=== PATIENT | male | born 1995 ===

== ENCOUNTER 2018-08-11 18:12 | Emergency (ER) | payer BC ==
[2018-08-11 20:04] VITALS: BP 128/71
[2018-08-11] MEDS: Albuterol HFA INHALER* 8 gm MDI INH ONE (21:05)
[2018-08-11] MEDS: Azithromycin TAB* 250 MG PO ONE (21:06)
[2018-08-11] MEDS: predniSONE TAB* 20 MG PO ONE (21:07)
--- NOTE | 2018-08-11 21:09 | ED ---
Influenza-Like Illness - HPI Summary HPI Summary: pt presents with a 1 week history of cough, subjective fevers, ear ache, headache. 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 he is a smoker. he has been smoking less due to his cough. - History of Current Complaint Chief Complaint: UCRespiratory Hx Obtained From: Patient Severity: Mild Associated Signs & Symptoms: Fever - subjective, Cough, Sore Throat, Headache Related Hx: Smoking - Allergy/Home Medications Allergies/Adverse Reactions: Allergies Allergy/AdvReac Type Severity Reaction Status Date / Time No Known Allergies Allergy Verified 08/11/18 20:00 Home Medications: Home Medications Esomeprazole Magnesium [Nexium 24Hr] 40 mg PO DAILY 08/11/18 [History Confirmed 08/11/18] Ibuprofen/Pseudoephedrine HCl [Advil Cold & Sinus] 1 tab PO Q6H PRN 08/11/18 [ History Confirmed 08/11/18] PMH/Surg Hx/FS Hx/Imm Hx Previously Healthy: Yes Respiratory History: Denies: Hx Asthma - Surgical History Surgery Procedure, Year, and Place: ACL reconstruction Infectious Disease History: No Infectious Disease History: Denies: Traveled Outside the [place] in Last 30 Days - Family History Known Family History: Positive: Hypertension - Social History Alcohol Use: Weekly Substance Use Type: Reports: None Smoking Status (MU): Light Every Day Tobacco Smoker Type: Cigarettes Amount Used/How Often: 2 pack weekly Review of Systems Positive: Fever - subjective, Fatigue. Negative: Chills Eyes: Negative ENT: Negative Positive: Sore Throat Cardiovascular: Negative Positive: Cough, Other - wheezing. Negative: Shortness Of Breath Gastrointestinal: Negative Genitourinary: Negative Positive: Myalgia. Negative: Arthralgia, Decreased ROM, Edema Skin: Negative Positive: Headache. Negative: Weakness, Paresthesia, Numbness, Syncope, Slurred Speech Psychological: Normal All Other Systems Reviewed And Are Negative: No Physical Exam Triage Information Reviewed: Yes Vital Signs On Initial Exam: Initial Vitals Temp Pulse Resp BP Pulse Ox 98.9 F 80 18 128/71 99 08/11/18 19:59 08/11/18 19:59 08/11/18 19:59 08/11/18 19:59 08/11/18 19:59 Vital Signs Reviewed: Yes Appearance: Positive: Well-Appearing, No Pain Distress, Well-Nourished Skin: Positive: Warm, Dry Head/Face: Positive: Normal Head/Face Inspection Eyes: Positive: Normal, EOMI, JAYME ENT: Positive: Normal ENT inspection, Hearing grossly normal, Pharynx normal Neck: Positive: Supple, Nontender Respiratory/Lung Sounds: Positive: Clear to Auscultation, Breath Sounds Present Cardiovascular: Positive: Normal, RRR Abdomen Description: Positive: Nontender, Soft Bowel Sounds: Positive: Present Musculoskeletal: Positive: Normal, Strength/ROM Intact Neurological: Positive: Normal, Sensory/Motor Intact, Alert, Oriented to Person Place, Time, CN Intact II-III Psychiatric: Positive: Normal AVPU Assessment: Alert Diagnostics - Vital Signs Vital Signs Temp Pulse Resp BP Pulse Ox 08/11/18 19:59 98.9 F 80 18 128/71 99 - Laboratory Lab Statement: Any lab studies that have been ordered have been reviewed, and results considered in the medical decision making process. Flu Symptom Course/Dx - Course Course Of Treatment: pt was given an inhaler with spacer for his reactive airways. he has been sick for approx 1 week with a productive cough. will send rx for prednisone and zpak. pt encouraged to f/u with pcp. work excuse given. - Diagnoses Provider Diagnoses: Bronchitis, Upper respiratory disease Discharge - Sign-Out/Discharge Documenting (check all that apply): Patient Departure All imaging exams completed and their final reports reviewed: No Studies - Discharge Plan Condition: Stable Disposition: HOME Prescriptions: Azithromyxin MERON (NF) [Z-Meron (Zithromax) 250 mg tabs #6] 2 tab PO .TODAY, THEN 1 DAILY #6 tab predniSONE TAB* [Deltasone 20 MG TAB*] 60 mg PO DAILY #15 tab MDD 3 Patient Education Materials: Acute Bronchitis (ED), Upper Respiratory Infection (ED) Forms: *Work Release Referrals: Bambi Flynn MD [Primary Care Provider] - - Billing Disposition and Condition Condition: STABLE Disposition: Home
== END 2018-08-11 21:14 | disposition home or self-care (01) ==
LOC: UCCORT 18:12
DX: J40 Bronchitis, not specified as acute or chronic (principal); J06.9 Acute upper respiratory infection, unspecified
CPT/HCPCS: 99213; A9270-GY; G0463; J7512

== ENCOUNTER 2019-05-10 12:55 | Emergency (ER) | payer BC ==
[2019-05-10 14:03] VITALS: BP 138/71
--- NOTE | 2019-05-10 14:06 | UC ---
Hand/Wrist HPI - HPI Summary HPI Summary: 23 yo male presents with right wrist/hand pain. He tells me that 2 days ago he went to turn around and lost his footing and fell on his right arm/wrist/hand. Since that time has had pain and decreased ROM in his right wrist that radiates into his right hand. He has rested and applied ice with little relief. 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 He is right handed. Denies numbness or tingling. - History Of Current Complaint Chief Complaint: UCUpperExtremity Stated Complaint: RT HAND INJURY Time Seen by Provider: 05/10/19 14:06 Hx Obtained From: Patient Onset/Duration: Sudden Onset Severity Initially: Moderate Severity Currently: Moderate Pain Intensity: 8 Pain Scale Used: 0-10 Numeric - Allergies/Home Medications Allergies/Adverse Reactions: Allergies Allergy/AdvReac Type Severity Reaction Status Date / Time No Known Allergies Allergy Verified 05/10/19 13:55 PMH/Surg Hx/FS Hx/Imm Hx GI/ History: Gastroesophageal Reflux - Surgical History Surgical History: Yes Surgery Procedure, Year, and Place: right ACL reconstruction - Family History Known Family History: Positive: Hypertension - Social History Occupation: Employed Full-time Lives: With Family Alcohol Use: Weekly Substance Use Type: Marijuana Smoking Status (MU): Light Every Day Tobacco Smoker Type: Cigarettes Amount Used/How Often: 2 pack weekly Review of Systems All Other Systems Reviewed And Are Negative: Yes Constitutional: Positive: Negative Skin: Positive: Negative Respiratory: Positive: Negative Cardiovascular: Positive: Negative Neurovascular: Positive: Negative Musculoskeletal: Positive: Other: - Right wrist/hand pain Neurological: Positive: Negative Psychological: Positive: Negative Physical Exam - Summary Physical Exam Summary: GENERAL: NAD. WDWN. No pain distress. SKIN: No rashes, sores, lesions, or open wounds. CHEST: No accessory muscle use. Breathing comfortably and in no distress. CV: Pulses intact radial and ulnar. Cap refill <2seconds MSK: Right wrist: Mild TTP at distal ulna and dorsal midline hand and wrist. Pain with extension and radial deviation. 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 No edema or obvious bony deformities. No snuffbox tenderness. NEURO: Alert. Sensations intact hand and all fingers. PSYCH: Age appropriate behavior. Triage Information Reviewed: Yes Vital Signs: Initial Vital Signs Temp 98.2 F 05/10/19 13:56 Pulse 76 05/10/19 13:56 Resp 20 05/10/19 13:56 BP 138/71 05/10/19 13:56 Pulse Ox 98 05/10/19 13:56 Vital Signs Reviewed: Yes Hand/Wrist Course/Dx - Course Course Of Treatment: XR: IMPRESSION: NO FRACTURE OF THE WRIST IS NOTED. IMPRESSION: No fracture of the right hand is noted. Suspect sprain. Pt was placed in a cock-up splint and advised to RICE and take tylenol/ ibuprofen for discomfort. F/u with Orthopedics if symptoms do not improve in 5-7 days - Differential Dx/Diagnosis Provider Diagnosis: Wrist sprain Discharge - Sign-Out/Discharge Documenting (check all that apply): Patient Departure All imaging exams completed and their final reports reviewed: Yes - Discharge Plan Condition: Stable Disposition: HOME Patient Education Materials: Wrist Sprain (ED) Forms: *Work Release Referrals: Bambi Flynn MD [Primary Care Provider] - Shiv Carrasco MD [Medical Doctor] - If Needed Additional Instructions: If you develop a fever, shortness of breath, chest pain, new or worsening symptoms - please call your PCP or go to the ED immediately. - Billing Disposition and Condition Condition: STABLE Disposition: Home - Attestation Statements Provider Attestation: Per institutional requirements, I have reviewed the chart, however, I was not consulted specifically or made aware of this patient by the midlevel provider. I did not personally evaluate, interact with , or disposition this patient.
== END 2019-05-10 14:43 | disposition home or self-care (01) ==
LOC: UCCORT 12:55
DX: S63.501A Unspecified sprain of right wrist, initial encounter (principal); W19.XXXA Unspecified fall, initial encounter; Y92.9 Unspecified place or not applicable; F17.210 Nicotine dependence, cigarettes, uncomplicated
CPT/HCPCS: 99211; G0463